=== PATIENT | female | born 1990 | race Caucasian/White ===

== ENCOUNTER → 2016-08-11 | Outpatient (CLI) | payer BC ==
--- NOTE | ~2016-08-11 | US128 ---
[id number] [facility] [address] [place], [place] [address] [id number] O MR#: [id number] Acc #: [id number] NAME: FERMIN PENA : 1990 SEX: F STUDY DATE/TIME: 08/11/2016 13:28 UNIT: CGUS ROOM: STUDY DESCRIPTION: Thyroid Attending Physician: Shady Payne M.D. Referring Physician: Shady Payne M.D. Ordering Physician: Shady Payne M.D. Primary Care Physician: Shady Payne M.D. MEDICAL IMAGING REPORT This report is preliminary unless electronic signature is present EXAM Thyroid ultrasound. INDICATION Enlarged thyroid identified on physical exam. TECHNIQUE Stacy-scale and color Doppler sonographic images were obtained through the patient's thyroid gland. FINDINGS Right lobe of the thyroid gland measures 4.2 x 2.0 x 1.8 cm; left lobe measures 3.9 x 1.2 x 1.4 cm. There is a dominant solid nodule identified within the right lobe of the thyroid gland which measures up to 1.9 x 1.6 x 1.4 cm. It is not particularly hypervascular. Remainder of thyroid parenchyma is relatively homogeneous. Patient's left thyroid lobe appears unremarkable. IMPRESSION The dominant solid nodule identified within the right lobe of the thyroid gland measures 1.9 x 1.6 x 1.4 cm. This does meet size criteria for percutaneous sampling and this is recommended. Dictated by... Karmen Bonilla M.D. THIS IS AN ELECTRONICALLY VERIFIED REPORT Karmen Bonilla M.D. at 08/13/2016 10:08 AM MEL/venus TD: 08/11/2016 18:22 JOB #: [id number] MEDICAL IMAGING REPORT Page 1 of 1 COPY
== END | disposition home or self-care (01) ==
LOC: CGUS 12:57
DX: E01.0 Iodine-deficiency related diffuse (endemic) goiter (principal); E04.1 Nontoxic single thyroid nodule
CPT/HCPCS: 76536

== ENCOUNTER → 2016-09-15 | Outpatient (CLI) | payer BC ==
--- NOTE | ~2016-09-15 | XA230 ---
[facility] A Service of [facility] RADIOLOGY TEXT RESULTS PATIENT: FERMIN PENA LOCATION: [facility] : [birth year] UNIT #: [id number] AGE: [address]: Shady Payne MD SEX: F ORDER DR: [id number] [facility] [address] [place], [place] [address] [id number] O MR#: [id number] Acc #: [id number] NAME: FERMIN PENA : 1990 SEX: F STUDY DATE/TIME: 09/15/2016 13:06 UNIT: [facility] ROOM: STUDY DESCRIPTION: XA FNA Attending Physician: Shady Payne M.D. Referring Physician: Shady Payne M.D. Ordering Physician: Shady Payne M.D. Primary Care Physician: Shady Payne M.D. MEDICAL IMAGING REPORT This report is preliminary unless electronic signature is present EXAM Fine-needle aspiration of a thyroid nodule HISTORY Solitary nodule right lobe of the thyroid measuring up to 2.0 cm. FINDINGS Procedure, attendant risks and options were discussed with the patient. She understands and wished to proceed. The patient was examined sonographically. The left lobe was normal. On the right side there is a dominant solid nodule present. Skin was prepped with Chlorhexidine solution and draped and subsequently the skin was anesthetized with 1% Xylocaine. 25-gauge aspirates were obtained under local anesthesia. The needle was removed. Hemostasis were achieved and the patient subsequently discharged. A single ultrasound image was recorded for documentation purposes. CONCLUSION Successful aspiration of the patient's right thyroid lobe nodule. Dictated by... Carter Vasquez M.D. THIS IS AN ELECTRONICALLY VERIFIED REPORT Carter Vasquez M.D. at 09/16/2016 7:14 AM Natalya TD: 09/15/2016 15:12 JOB #: [id number] MEDICAL IMAGING REPORT Page 1 of 1 COPY
== END | disposition home or self-care (01) ==
LOC: CIVR 12:20
PROC: 0GBH3ZX Excision of Right Thyroid Gland Lobe, Percutaneous Approach, Diagnostic (ICD-10-PCS; principal; 2016-09-15)
DX: E04.1 Nontoxic single thyroid nodule (principal)
CPT/HCPCS: 76942; 88173; 88305